=== PATIENT | male | born 2000 | race Caucasian/White ===

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

== ENCOUNTER 2019-06-04 13:40 | Emergency (ER) | payer SELFPAY ==
[~2019-06-04] VITALS: Ht 182.9 cm; Wt 67.0 kg
[~2019-06-04 13:40] MED LIST: PRED20TA PO
[2019-06-04 14:39] VITALS: BP 117/62
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
== END 2019-06-04 15:14 | disposition home or self-care (01) ==
LOC: ER 13:40
DX: R07.89 Other chest pain (principal); R06.02 Shortness of breath; J45.909 Unspecified asthma, uncomplicated; F17.200 Nicotine dependence, unspecified, uncomplicated
CPT/HCPCS: 99281

== ENCOUNTER 2021-06-17 21:17 | Emergency (ER) | payer SELFPAY ==
[~2021-06-17] VITALS: Ht 185.4 cm; Wt 75.0 kg
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
[2021-06-17] MEDS ORDERED: ONDANSETRON PF 4 MG/2 ML VIAL. ONE (21:39)
[2021-06-17 21:45] LABS: BASO % 0 % (0-3); EOS % 0 % (0-3); HEMATOCRIT 42.9 % (39.0-53.0); HEMOGLOBIN 14.9 g/dL (13.0-17.5); LYMPH # 1.8 x10^3/uL (1.0-4.8); LYMPH % 15 % (24-48); MEAN CORPUSCULAR HEMOGLOBIN 28 pg (25-35); MEAN CORPUSCULAR HGB CONC 35 g/dL (31-37); MEAN CORPUSCULAR VOLUME 81 fL (79-100); MONO # 0.8 x10^3/uL (0.0-1.1); MONO % 7 % (0-9); NEUT # 9.4 x10^3/uL (1.8-7.7); NEUT % 78 % (31-73); PLATELET COUNT 368 x10^3/uL (140-400); RED BLOOD COUNT 5.29 x10^6/uL (4.30-5.70); RED CELL DISTRIBUTION WIDTH 12.6 % (11.5-14.5); WHITE BLOOD COUNT 12.1 x10^3/uL (4.0-11.0)
[2021-06-17] MEDS ORDERED: ONDANSETRON PF 4 MG/2 ML VIAL. IVP ONE (21:45)
[2021-06-17] MEDS ORDERED: IV NORMAL SALINE 1000ML BAG 1,000 ML IV ONE (21:45)
[2021-06-17 21:52] LABS: CALCIUM 9.7 mg/dL (8.5-10.1); CREATININE 1.2 mg/dL (0.7-1.3); POTASSIUM 3.8 mmol/L (3.5-5.1)
[2021-06-17 21:58] LABS: ALBUMIN 4.7 g/dL (3.4-5.0); ALBUMIN/GLOBULIN RATIO 1.1 (1.0-1.7); TOTAL BILIRUBIN 0.7 mg/dL (0.2-1.0); TOTAL PROTEIN 8.8 g/dL (6.4-8.2)
--- NOTE | 2021-06-17 21:59 | RAD ---
XR CHEST 1V History: Reason: trauma / Spl. Instructions: / History: . Pain Comparison: August 02, 2016 Findings: No consolidation or pleural effusion. Normal heart size. No pneumothorax. Impression: 1. No acute cardiopulmonary process. Electronically signed by: Melvin Lane DO (06/17/2021 9:57 PM) [facility]
--- NOTE | 2021-06-17 22:06 | RAD ---
XR KNEE 3 VIEWS_RT History: Reason: trauma / Spl. Instructions: / History: . Pain Technique: 3 views right knee Comparison: None. Findings: No dislocation. No acute fracture. No significant knee joint effusion. Impression: 1. No acute osseous abnormality. Electronically signed by: Melvin Lane DO (06/17/2021 10:04 PM) [facility]
--- NOTE | 2021-06-17 22:07 | RAD ---
XR HAND_RIGHT 3 VIEWS History: Reason: trauma / Spl. Instructions: / History: . Pain Technique: 3 views right hand Comparison: None. Findings: No dislocation. No acute fracture. Chronic fifth metacarpal fracture. Impression: 1. No acute osseous abnormality. Electronically signed by: Melvin Lane DO (06/17/2021 10:05 PM) [facility]
[2021-06-17] MEDS ORDERED: TETANUS AND DIPHTHERIA TOX/PF 0.5 ML DISP.SYRIN. VAX IM ONE (22:15)
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
[2021-06-17 23:09] LABS: PROTHROMBIN TIME PATIENT 14.5 SEC (11.7-14.0)
[2021-06-17] MEDS ORDERED: HYDR-2761 PO (23:34)
[2021-06-17] MEDS ORDERED: ONDA-84 PO (23:34)
[2021-06-17 23:35] VITALS: BP 119/68
== END 2021-06-17 23:45 | disposition home or self-care (01) ==
LOC: ER 21:17
DX: S80.211A Abrasion, right knee, initial encounter (principal); M79.641 Pain in right hand; J02.9 Acute pharyngitis, unspecified; R11.2 Nausea with vomiting, unspecified; J45.909 Unspecified asthma, uncomplicated; V29.49XA Motorcycle driver injured in collision with other motor vehicles in traffic accident, initial encounter; Y93.89 Activity, other specified; Y92.488 Other paved roadways as the place of occurrence of the external cause; Y99.8 Other external cause status
CPT/HCPCS: 36415; 70450; 71045; 72125; 73130; 73562; 80053; 82550; 85025; 85610; 85730; 86850; 86900; 86901; 90471; 90714; 96361; 96374; 99285; G0480; J2405; J7030